=== PATIENT | female | born 1995 ===

== ENCOUNTER → 2017-07-07 | Outpatient (REF) | payer BC, OTHER ==
[2017-07-08 00:18] LABS: MICROSCOPIC INDICATED? MAN YES (NO)
[2017-07-08 00:28] LABS: WBC, URINE 40-50 /hpf (0-3)
[2017-07-08 00:29] LABS: RBC, URINE 20-30 /hpf (0-3); SQUAMOUS EPITHELIAL CELL URINE SMALL AMOUNT /hpf (SMALL AMT)
[2017-07-08 00:30] LABS: BACTERIA, URINE LARGE AMOUNT; HYALINE CAST, URINE NONE SEEN /lpf (0-1)
[2017-07-08 00:31] LABS: MICROSCOPIC EXAM PERFORMED
== END ==
LOC: M LAB REF 09:23
PROVIDERS: ATTEND Physician Assistant Medical
DX: R30.0 Dysuria (principal)

== ENCOUNTER → 2017-07-14 | Outpatient (REF) | payer OTHER | LOC: M LAB REF 13:33 | PROVIDERS: ATTEND Physician Assistant | DX: N39.0 Urinary tract infection, site not specified (principal) ==